=== PATIENT | female | born 1990 | race American Indian/Alaskan Native ===

== ENCOUNTER 2016-10-24 06:46 | Emergency (ER) | payer BC ==
[2016-10-24 08:18] VITALS: BP 139/76
[2016-10-24 08:44] LABS: Basophils % (Auto) 0.7 % (0.0-1.8); Hematocrit 34.9 % (30.3-42.9); Hemoglobin 10.8 gm/dl (10.1-14.3); Mean Corpuscular HGB Conc 31 % (30-34); Platelet Count 272 K/mm3 (140-440); Red Blood Count 5.23 M/mm3 (3.65-5.03); Red Cell Distribution Width 15.2 % (13.2-15.2); White Blood Count 10.7 K/mm3 (4.5-11.0)
[2016-10-24 08:47] LABS: Mean Corpuscular Hemoglobin 21 pg (28-32); Mean Corpuscular Volume 67 fl (79-97)
[2016-10-24 09:07] LABS: Alanine Aminotransferase 8 units/L (7-56); Albumin 3.8 g/dL (3.9-5); Alkaline Phosphatase 74 units/L (35-129); Anion Gap 17 mmol/L; BUN/Creatinine Ratio 15.55; Bilirubin,Total < 0.2 mg/dL (0.1-1.2); Blood Urea Nitrogen 14 mg/dL (7-17); Calcium 8.6 mg/dL (8.4-10.2); Carbon Dioxide 25 mmol/L (22-30); Chloride 102.8 mmol/L (98-107); Glucose 106 mg/dL (65-100); Lipase 32 units/L (13-60); Potassium 4.1 mmol/L (3.6-5.0); Sodium 141 mmol/L (137-145); Total Protein 7.5 g/dL (6.3-8.2)
[2016-10-24 10:18] LABS: Bacteria,Urine 1+ /HPF (Negative); Bilirubin,Urine NEG (Negative); Blood,Urine NEG (Negative); Ketones,Urine NEG (Negative); Leukocyte Esterase,Urine SM (Negative); Mucus,Urine 2+ /HPF; Nitrite,Urine NEG (Negative); Urobilinogen,Urine < 2.0 mg/dL (<2.0)
--- NOTE | 2016-10-25 07:21 | ED Elopement Review ---
ED Pt Elopement review - Results review Lab results: Laboratory Tests 10/24/16 10/24/16 10/24/16 08:32 08:32 09:59 WBC 10.7 RBC 5.23 H Hgb 10.8 Hct 34.9 MCV 67 L MCH 21 L MCHC 31 RDW 15.2 Plt Count 272 Lymph % (Auto) 17.4 [place] % (Auto) 4.4 Eos % (Auto) 0.0 Baso % (Auto) 0.7 Lymph # 1.9 [place] # 0.5 Eos # 0.0 Baso # 0.1 Seg Neutrophils % 77.5 H Seg Neutrophils # 8.3 H Sodium 141 Potassium 4.1 Chloride 102.8 Carbon Dioxide 25 Anion Gap 17 BUN 14 Creatinine 0.9 Estimated GFR > 60 BUN/Creatinine Ratio 15.55 Glucose 106 H Calcium 8.6 Total Bilirubin < 0.2 AST 9 ALT 8 Alkaline Phosphatase 74 Total Protein 7.5 Albumin 3.8 L Albumin/Globulin Ratio 1.0 Lipase 32 Urine Color Yellow Urine Turbidity Clear Urine pH 5.0 Ur Specific [place] 1.028 Urine Protein 30 mg/dl Urine Glucose (UA) Neg Urine Ketones Neg Urine Blood Neg Urine Nitrite Neg Urine Bilirubin Neg Urine Urobilinogen < 2.0 Ur Leukocyte Esterase Sm Urine WBC (Auto) 11.0 H Urine RBC (Auto) 5.0 U Epithel Cells (Auto) 7.0 Urine Bacteria (Auto) 1+ Urine Mucus 2+ Urine HCG, Qual Negative - Call Back decision Pt Call Back Decision: No action required
== END 2016-10-24 16:23 | disposition left against medical advice (07) ==
LOC: ED 06:46
DX: R10.9 Unspecified abdominal pain (principal); Z53.21 Procedure and treatment not carried out due to patient leaving prior to being seen by health care provider
CPT/HCPCS: 36415; 80053; 81001; 81025; 83690; 85025

== ENCOUNTER 2018-06-01 03:07 | Emergency (ER) | payer SELFPAY ==
[2018-06-01] MEDS ORDERED: NORCO 10/325 PO ONE (06:59)
[2018-06-01] MEDS ORDERED: DECADRON IM ONE (06:59)
[2018-06-01] MEDS ORDERED: LIDOCAINE VISCOUS 2% PO ONE (06:59)
[2018-06-01] MEDS ORDERED: MOTRIN PO ONE (07:00)
--- NOTE | 2018-06-01 07:06 | Emergency Department Report ---
HPI - General Chief Complaint: Sore Throat Time Seen by Provider: 06/01/18 06:51 - HPI HPI: Room 24 The patient is a 28-year-old female presenting with chief complaint of sore throat. The patient states that she has had swollen and painful tonsils for the past 3 days. The patient states she had a full course of clindamycin (450 mg 3 times a day 10 days) that she never took in the past so she began taking it 3 days ago. The patient denies history of fever. Patient admits to an occasional cough. Patient gives her pain is score of 10/10 Location: Throat Duration: 3 days Quality: Pain Severity:10/10 Modifying factors: [see above] Context: [see above] Mode of transportation: [not driving] ED Past Medical Hx - Past Medical History Previous Medical History?: Yes Additional medical history: Sore throat pain with hx. of tonsilitis - Surgical History Past Surgical History?: No - Family History Family history: no significant - Social History Smoking Status: Never Smoker Substance Use Type: None (denies illicit drug use) - Medications Home Medications: Home Medications Medication Instructions Recorded Confirmed Last Taken Type Acetamin/Codeine 120-12Mg/5 ml 5 ml PO TID PRN #80 ml 10/23/15 Unknown Rx [Tylenol/Codeine 120-12 mg/5 ml] Promethazine [Phenergan TAB] 25 mg PO Q6HR PRN #30 tab 10/29/15 Unknown Rx Ibuprofen [Motrin 800 MG tab] 800 mg PO Q8HR PRN #15 tablet 11/20/15 Unknown Rx Promethazine /Codeine 5 ml PO Q6H PRN #150 ml 11/20/15 Unknown Rx [Phenergan/Codeine 6.25-10 mg/5 ml] predniSONE [Deltasone] 20 mg PO QAM #5 tab 11/20/15 Unknown Rx Ibuprofen Oral Liqd [Motrin Oral 800 mg PO TID PRN #1 bottle 07/09/16 Unknown Rx Liq 100 mg/5 ml] Clindamycin [Clindamycin CAP] 300 mg PO Q8H #30 cap 07/18/16 Unknown Rx HYDROcodone/APAP 5-325 [[place] 1 - 2 each PO Q6HR PRN #14 tablet 06/01/18 Unknown Rx 5/325] Ibuprofen [Motrin 800 MG tab] 800 mg PO Q8HR PRN #20 tablet 06/01/18 Unknown Rx ED Review of Systems ROS: Stated complaint: SWOLLEN TONSILS MIGRANE HEADACHE Other details as noted in HPI Constitutional: denies: fever Eyes: denies: eye pain ENT: throat pain Respiratory: cough Cardiovascular: denies: chest pain Endocrine: no symptoms reported Gastrointestinal: denies: abdominal pain Genitourinary: denies: dysuria Musculoskeletal: denies: back pain Neurological: denies: headache Physical Exam - Physical Exam Vital Signs: Vital Signs 06/01/18 03:30 Temperature 99.7 F H Pulse Rate 101 H Respiratory 14 Rate Blood Pressure 120/79 O2 Sat by Pulse 100 Oximetry Physical Exam: GENERAL: The patient is well-developed well-nourished female sleeping on stretcher not appearing to be in acute distress. [] HEENT: Normocephalic. Atraumatic. Extraocular motions are intact. Patient has moist mucous membranes. 3+ tonsils with exudate bilaterally NECK: Supple. Trachea midline. No stridor CHEST/LUNGS: There is no respiratory distress noted. SKIN: There is no rash. There is no edema. There is no diaphoresis. NEURO: The patient is awake, alert, and oriented. The patient is cooperative. The patient has normal speech MUSCULOSKELETAL: There is no evidence of acute injury. ED Course Vital Signs 06/01/18 03:30 Temperature 99.7 F H Pulse Rate 101 H Respiratory 14 Rate Blood Pressure 120/79 O2 Sat by Pulse 100 Oximetry ED Medical Decision Making - Differential Diagnosis tonsillitis Critical care attestation.: If time is entered above; I have spent that time in minutes in the direct care of this critically ill patient, excluding procedure time. ED Disposition Clinical Impression: Acute tonsillitis, Throat pain Disposition: DC-01 TO HOME OR SELFCARE Is pt being admited?: No Does the pt Need Aspirin: No Condition: Stable Instructions: Tonsillitis (ED) Additional Instructions: Return to the emergency department immediately should you develop worsening symptoms, fever, inability to tolerate food or liquid or any other concerns. Prescriptions: HYDROcodone/APAP 5-325 [[place] 5/325] 1 - 2 each PO Q6HR PRN #14 tablet PRN Reason: Pain Ibuprofen [Motrin 800 MG tab] 800 mg PO Q8HR PRN #20 tablet PRN Reason: Pain, Moderate (4-6) Referrals: JACKY CHINO MD [Staff Physician] - [place] (Dr. Chino is an event marketing intern ( ear nose and throat doctor). Please follow up with him for further evaluation) GISSELLE TURNER MD [Staff Physician] - [place] (Dr Turner is an event marketing intern (ear nose and throat doctor). Please follow up with her for further evaluation) Time of Disposition: 07:09
[2018-06-01 08:17] VITALS: BP 110/75
== END 2018-06-01 08:19 | disposition home or self-care (01) ==
LOC: ED 03:07
DX: J03.90 Acute tonsillitis, unspecified (principal); R07.0 Pain in throat; Z88.0 Allergy status to penicillin
CPT/HCPCS: 96372; 99282; J1100

== ENCOUNTER 2018-11-26 01:38 | Emergency (ER) | payer OTHER ==
--- NOTE | 2018-11-26 02:07 | Emergency Department Report ---
ED Abdominal Pain HPI - General Chief Complaint: Abdominal Pain Stated Complaint: ABD PAIN Time Seen by Provider: 11/26/18 02:01 Source: patient Mode of arrival: Ambulatory Limitations: No Limitations - History of Present Illness Initial Comments: 28-year-old -Chinese female presents to the emergency room for complaint of abdominal pain is located on the left side upper and lower all day. Patient admits to nausea denies any fever chills or diarrhea. Patient reports that the pain is sharp and moved to her back. Patient denies any vaginal discharge vaginal bleeding and is not sexually active. Patient reports that she took Aleve and Tylenol which helps ease the pain but does not take it away. Patient last menstrual period was 11/09/2018. She reports that she has an allergy to amoxicillin and ibuprofen. MD Complaint: abdominal pain Location: LUQ, LLQ Radiation: back Severity scale (0 -10): 7 Quality: sharp Consistency: constant Improves With: nothing Worsens With: movement Associated Symptoms: nausea Treatments Prior to Arrival: NSAIDs, other (Tylenol) - Related Data LMP Date: 11/09/18 Previous Rx's Medication Instructions Recorded Last Taken Type Acetamin/Codeine 120-12Mg/5 ml 5 ml PO TID PRN #80 ml 10/23/15 Unknown Rx [Tylenol/Codeine 120-12 mg/5 ml] Promethazine [Phenergan TAB] 25 mg PO Q6HR PRN #30 tab 10/29/15 Unknown Rx Ibuprofen [Motrin 800 MG tab] 800 mg PO Q8HR PRN #15 tablet 11/20/15 Unknown Rx Promethazine /Codeine 5 ml PO Q6H PRN #150 ml 11/20/15 Unknown Rx [Phenergan/Codeine 6.25-10 mg/5 ml] predniSONE [Deltasone] 20 mg PO QAM #5 tab 11/20/15 Unknown Rx Ibuprofen Oral Liqd [Motrin Oral 800 mg PO TID PRN #1 bottle 07/09/16 Unknown Rx Liq 100 mg/5 ml] Clindamycin [Clindamycin CAP] 300 mg PO Q8H #30 cap 07/18/16 Unknown Rx HYDROcodone/APAP 5-325 [[place] 1 - 2 each PO Q6HR PRN #14 tablet 06/01/18 Unknown Rx 5/325] Ibuprofen [Motrin 800 MG tab] 800 mg PO Q8HR PRN #20 tablet 06/01/18 Unknown Rx Naproxen [Naprosyn TAB] 500 mg PO BID #20 tablet 11/26/18 Unknown Rx Allergies Allergy/AdvReac Type Severity Reaction Status Date / Time amoxicillin Allergy Unknown Verified 10/24/16 08:18 ibuprofen [From Motrin] Allergy Unknown Verified 11/26/18 01:42 ED Review of Systems ROS: Stated complaint: ABD PAIN Other details as noted in HPI Comment: All other systems reviewed and negative Gastrointestinal: abdominal pain, nausea. denies: vomiting, diarrhea, constipation ED Past Medical Hx - Past Medical History Previous Medical History?: No Additional medical history: Sore throat pain with hx. of tonsilitis - Surgical History Past Surgical History?: No - Social History Smoking Status: Never Smoker Substance Use Type: Alcohol - Medications Home Medications: Home Medications Medication Instructions Recorded Confirmed Last Taken Type Acetamin/Codeine 120-12Mg/5 ml 5 ml PO TID PRN #80 ml 10/23/15 Unknown Rx [Tylenol/Codeine 120-12 mg/5 ml] Promethazine [Phenergan TAB] 25 mg PO Q6HR PRN #30 tab 10/29/15 Unknown Rx Ibuprofen [Motrin 800 MG tab] 800 mg PO Q8HR PRN #15 tablet 11/20/15 Unknown Rx Promethazine /Codeine 5 ml PO Q6H PRN #150 ml 11/20/15 Unknown Rx [Phenergan/Codeine 6.25-10 mg/5 ml] predniSONE [Deltasone] 20 mg PO QAM #5 tab 11/20/15 Unknown Rx Ibuprofen Oral Liqd [Motrin Oral 800 mg PO TID PRN #1 bottle 07/09/16 Unknown R x Liq 100 mg/5 ml] Clindamycin [Clindamycin CAP] 300 mg PO Q8H #30 cap 07/18/16 Unknown Rx HYDROcodone/APAP 5-325 [[place] [facility] 1 - 2 each PO Q6HR PRN #14 tablet 06/01/18 Unknown Rx 5/325] Ibuprofen [Motrin 800 MG tab] 800 mg PO Q8HR PRN #20 tablet 06/01/18 Unknown Rx Naproxen [Naprosyn TAB] 500 mg PO BID #20 tablet 11/26/18 Unknown Rx ED Physical Exam - General Limitations: No Limitations General appearance: alert, in no apparent distress - Head Head exam: Present: atraumatic, normocephalic - Eye Eye exam: Present: normal appearance, PERRL, EOMI - ENT ENT exam: Present: mucous membranes moist - Respiratory Respiratory exam: Present: normal lung sounds bilaterally. Absent: respiratory distress - Cardiovascular Cardiovascular Exam: Present: regular rate, normal rhythm. Absent: systolic murmur, diastolic murmur, rubs, gallop - GI/Abdominal GI/Abdominal exam: Present: soft, tenderness (LUQ, LLQ), guarding, normal bowel sounds. Absent: distended - Extremities Exam Extremities exam: Present: normal inspection, full ROM - Neurological Exam Neurological exam: Present: alert, oriented X3 - Psychiatric Psychiatric exam: Present: normal affect, normal mood - Skin Skin exam: Present: warm, dry, intact, normal color. Absent: rash ED Course Vital Signs 11/26/18 11/26/18 11/26/18 01:42 03:07 04:23 Temperature 97.8 F Pulse Rate 82 78 78 Respiratory 18 18 16 Rate Blood Pressure 128/76 Blood Pressure 125/90 [Right] O2 Sat by Pulse 100 99 99 Oximetry ED Medical Decision Making - Lab Data Result diagrams: 11/26/18 01:52 11/26/18 01:52 - Radiology Data Radiology results: report reviewed Patient: KATHRYN PERSAUD MR#: [id number] : 1990 Acct:[id number] Age/Sex: 28 / F ADM Date: 11/26/18 Loc: ED Attending Dr: Ordering Physician: ISAC LAGUNAS Date of Service: 11/26/18 Procedure(s): CT abdomen pelvis w con Accession Number(s): [id number] cc: ISAC LAGUNAS PROCEDURE: CT ABDOMEN PELVIS W CON TECHNIQUE: Computerized axial tomography of the abdomen and pelvis was performed after the IV injection of iodinated nonionic contrast. CT DOSE LENGTH PRODUCT: 1783 mGycm HISTORY: abdominal tenderness and pain COMPARISONS: None . FINDINGS: Visualized lower thorax: No significant abnormality. Liver: Normal size and attenuation. Spleen: Normal size and attenuation. Gallbladder and biliary system: Normal. Pancreas: Normal. Adrenals: Normal. Kidneys: Normal. GI tract: There is no evidence of obstruction. The cecum, appendix and colon are normal . Lymph nodes and mesentery: Normal. Vasculature: Normal.. Bladder: Normal. Reproductive organs: The uterus is normal. There is a 5 x 4 x 4 cm cyst off of the left ovary. Small follicular cysts of the right ovary are noted. No fluid in the lower pelvis.. Peritoneum: No free fluid. Musculoskeletal structures: No significant abnormality. Other: None . IMPRESSION: There is no evidence of intestinal or urinary tract obstruction. No ileus or enteritis. The appendix is normal. There is a 5 cm cyst on the left ovary. . This document is electronically signed by Domi Dubose DO., November 26 2018 03:54:05 AM ET Transcribed By: [facility] Dictated By: DOMI DUBOSE MD Electronically Authenticated By: DOMI DUBOSE MD Signed Date/Time: 11/26/18 0356 DD/ 1 TD/TT: 11/26/18343 Critical care attestation.: If time is entered above; I have spent that time in minutes in the direct care of this critically ill patient, excluding procedure time. ED Disposition Clinical Impression: Ovarian cyst Qualifiers: Laterality: left Qualified Code(s): N83.202 - Unspecified ovarian cyst, left side Disposition: - TO HOME OR SELFCARE Is pt being admited?: No Does the pt Need Aspirin: No Condition: Stable Instructions: Abdominal Pain (ED) Additional Instructions: Please take pain medication as needed. Is very important for you to follow up with the [facility] SERV[facility]CHN[facility] provider as you have a ovarian cyst on the left side. Prescriptions: Naproxen [Naprosyn TAB] 500 mg PO BID #20 tablet Referrals: [facility] JOSÉ MIGUEL [Primary Care Provider] - 3-5 Days [facility] [Provider Group] - 3-5 Days [facility] [Provider Group] - 3-5 Days [facility] [Provider Group] - 3-5 Days Forms: Work/School Release Form(ED)
[2018-11-26] MEDS: NACL 0.9% 1000 ML 1,000 ML IV ONE ×2 (02:15→03:12)
[2018-11-26 02:24] LABS: Basophils % (Auto) 0.6 % (0.0-1.8); Eosinophils # (Auto) 0.1 K/mm3 (0.0-0.4); Eosinophils % (Auto) 1.2 % (0.0-4.3); Hematocrit 35.3 % (30.3-42.9); Lymphocytes # (Auto) 2.5 K/mm3 (1.2-5.4); Lymphocytes % (Auto) 42.1 % (13.4-35.0); Mean Corpuscular HGB Conc 31 % (30-34); Monocytes # (Auto) 0.4 K/mm3 (0.0-0.8); Monocytes % (Auto) 6.3 % (0.0-7.3); Platelet Count 201 K/mm3 (140-440); Red Blood Count 5.12 M/mm3 (3.65-5.03); Red Cell Distribution Width 14.6 % (13.2-15.2)
[2018-11-26] MEDS ORDERED: MORPHINE IV ONE (02:26)
[2018-11-26] MEDS ORDERED: ZOFRAN IV ONE (02:26)
[2018-11-26 02:55] LABS: Alanine Aminotransferase 9 units/L (7-56); BUN/Creatinine Ratio 13; Blood Urea Nitrogen 12 mg/dL (7-17); Calcium 8.7 mg/dL (8.4-10.2); Hemolysis Index 3
[2018-11-26 02:56] LABS: Bilirubin,Urine NEG (Negative); Blood,Urine LG (Negative); Color,Urine Yellow (Yellow); Hyaline Casts,Urine 1 /LPF; Mucus,Urine FEW /HPF
[2018-11-26 03:03] LABS: Mean Corpuscular Volume 69 fl (79-97)
[2018-11-26 03:09] VITALS: BP 125/90
--- NOTE | 2018-11-26 03:56 | Cat Scan Report ---
PROCEDURE: CT ABDOMEN PELVIS W CON TECHNIQUE: Computerized axial tomography of the abdomen and pelvis was performed after the IV inject ion of iodinated nonionic contrast. CT DOSE LENGTH PRODUCT: 1783 mGycm HISTORY: abdominal tenderness and pain COMPARISONS: None . FINDINGS: Visualized lower thorax: No significant abnormality. Liver: Normal size and attenuation. Spleen: Normal size and attenuation. Gallbladder and biliary system: Normal. Pancreas: Normal. Adrenals: Normal. Kidneys: Normal. GI tract: There is no evidence of obstruction. The cecum, appendix and colon are normal . Lymph nodes and mesentery: Normal. Vasculature: Normal.. Bladder: Normal. Reproductive organs: The uterus is normal. There is a 5 x 4 x 4 cm cyst off of the left ovary. Small follicular cysts of the right ovary are noted. No fluid in the lower pelvis.. Peritoneum: No free fluid. Musculoskeletal structures: No significant abnormality. Other: None . IMPRESSION: There is no evidence of intestinal or urinary tract obstruction. No ileus or enteritis. The appendix is normal. There is a 5 cm cyst on the left ovary. . This document is electronically signed by Domi Dubose DO., November 26 2018 03:54:05 AM ET
== END 2018-11-26 04:23 | disposition home or self-care (01) ==
LOC: ED 01:38
DX: N83.202 Unspecified ovarian cyst, left side (principal); Z88.5 Allergy status to narcotic agent; Z88.1 Allergy status to other antibiotic agents
CPT/HCPCS: 36415; 74177; 80053; 81001; 83690; 84703; 85025; 96374; 96375; 99284; J2270; J2405; J7030; Q9967